=== PATIENT | female | born 1975 | race American Indian/Alaskan Native ===

== ENCOUNTER 2020-04-03 16:01 | Outpatient (CLI) | payer BC ==
[2020-04-03 16:48] LABS: Basophils % (Auto) 0.5 % (0.0-1.8); Eosinophils # (Auto) 0.1 K/mm3 (0.0-0.4); Eosinophils % (Auto) 0.6 % (0.0-4.3); Hematocrit 35.5 % (30.3-42.9); Hemoglobin 11.8 gm/dl (10.1-14.3); Lymphocytes # (Auto) 2.6 K/mm3 (1.2-5.4); Lymphocytes % (Auto) 33.1 % (13.4-35.0); Mean Corpuscular HGB Conc 33 % (30-34); Mean Corpuscular Volume 77 fl (79-97); Monocytes # (Auto) 0.5 K/mm3 (0.0-0.8); Monocytes % (Auto) 6.6 % (0.0-7.3); Platelet Count 290 K/mm3 (140-440); Red Blood Count 4.62 M/mm3 (3.65-5.03); Red Cell Distribution Width 15.7 % (13.2-15.2)
== END 2020-04-03 16:02 | disposition home or self-care (01) ==
LOC: LAB 16:01
PROVIDERS: ATTEND Internal Medicine Cardiovascular Disease
DX: Z90.710 Acquired absence of both cervix and uterus (principal)
CPT/HCPCS: 36415; 85025; 85379

== ENCOUNTER 2020-04-15 12:27 | Outpatient (CLI) | payer BC ==
[2020-04-15 13:10] LABS: Blood Urea Nitrogen 10 mg/dL (7-17)
--- NOTE | 2020-04-15 14:50 | Cat Scan Report ---
CTA CHEST WITH CONTRAST INDICATION / CLINICAL INFORMATION: ELEVATED D-DIMER,CHEST DISCOMFORT,FEELING JITTERY. TECHNIQUE: Axial CT images were obtained through the chest after injection of 100 cc Omni 350 IV contrast. 3 augie ne MIP and/or 3D reconstructions were produced. All CT scans at this location are performed using CT dose reduction for ALARA by means of automated exposure control. COMPARISON: None available. FINDINGS: PULMONARY ARTERIES: No pulmonary emboli. THORACIC AORTA: No significant abnormality. HEART: Upper limits normal size heart. MEDIASTINUM / MAGDIEL: No significant abnormality. PLEURA: No pleural effusion. No pneumothorax. LUNGS: 5 mm pulmonary nodule in the left lower lobe (axial series 2 image 61). No mass or consolidati on. UPPER ABDOMEN: No acute findings. SKELETAL STRUCTURES: No significant osseous abnormality. ADDITIONAL FINDINGS: 8 mm hypoattenuating thyroid nodule in the inferior left lobe. IMPRESSION: 1. No CT evidence for pulmonary embolism. 2. No acute findings. 3. 5 mm pulmonary nodule in the left lower lobe. Consider follow-up CT chest in 12 months if this pat ient has high risk for pulmonary neoplasm. No routine follow-up is recommended for patients with a ri sk for pulmonary neoplasm. 4. 8 mm hypoattenuating left thyroid lobe nodule. No routine follow-up is recommended. Signer Name: Randall Bermudez MD Signed: 04/15/2020 2:45 PM Workstation Name: [id number]
== END 2020-04-15 12:28 | disposition home or self-care (01) ==
LOC: CT 12:27
PROVIDERS: ATTEND Internal Medicine Cardiovascular Disease
DX: R91.1 Solitary pulmonary nodule (principal); R45.0 Nervousness; R79.89 Other specified abnormal findings of blood chemistry
CPT/HCPCS: 36415; 71275; 82565; 84520; Q9967